=== PATIENT | female | born 1950 ===

== ENCOUNTER → 2020-01-26 08:00 | Outpatient (CLI) | payer OTHER | END | disposition home or self-care (01) | LOC: LAB 08:00 → ADM 14:30 → EDSTATUS 02-02 14:30 → AMB-ENDOS 02-02 14:30 → EDBD 02-02 14:30 | PROVIDERS: ATTEND Colon & Rectal Surgery | DX: U07.1 COVID-19 (principal); K92.1 Melena; K29.00 Acute gastritis without bleeding; Z12.11 Encounter for screening for malignant neoplasm of colon ==

== ENCOUNTER 2020-03-08 06:10 | Day surgery (SDC) | payer OTHER | END 2020-03-08 10:30 | disposition home or self-care (01) | LOC: AMB-ENDOS 06:10 | PROVIDERS: ATTEND Colon & Rectal Surgery | DX: D13.1 Benign neoplasm of stomach (principal); K62.89 Other specified diseases of anus and rectum; K64.0 First degree hemorrhoids; K20.80 Other esophagitis without bleeding; Z20.828 Contact with and (suspected) exposure to other viral communicable diseases; Z12.11 Encounter for screening for malignant neoplasm of colon ==

== ENCOUNTER → 2020-07-26 15:00 | Outpatient (CLI) | payer OTHER | END | disposition home or self-care (01) | LOC: PPH VACUNA 15:00 | PROVIDERS: ATTEND Emergency Medicine Pediatric Emergency Medicine | DX: Z23 Encounter for immunization (principal) ==